=== PATIENT | male | born 1955 | race Two or more races ===

== ENCOUNTER 2022-10-28 12:51 | Emergency (ER) | payer MEDICARE ==
[~2022-10-28] VITALS: Ht 167.6 cm; Wt 54.5 kg
[2022-10-28] MEDS ORDERED: ACETAMINOPHEN 325 MG TABLET PO ONE (14:00)
[2022-10-28] MEDS ORDERED: 0.9% SODIUM CHLORIDE 10 ML SYRINGE IVP PRN (14:15)
[2022-10-28 14:40] LABS: COVID AG,FIA SOURCE NASAL SWAB
[2022-10-28 14:44] LABS: BASOPHILS % (AUTO) 0.1 % (0.0-2.0); EOSINOPHILS % (AUTO) 0 % (1.0-6.0); HEMATOCRIT 36.4 % (41-53); HEMOGLOBIN 11.4 g/dL (13.5-17.5); LYMPHOCYTES # (AUTO) 0.6 K/uL (1.0-4.8); LYMPHOCYTES % (AUTO) 2.4 % (22.0-44.0); MEAN CORPUSCULAR HEMOGLOBIN 28.5 pg (26.0-34.0); MEAN CORPUSCULAR HGB CONC 31.4 G/dL (31.0-37.0); MEAN CORPUSCULAR VOLUME 91 fL (80-100); MONOCYTES % (AUTO) 4.3 % (2.0-9.0); NEUTROPHILS # (AUTO) 22.7 K/uL (1.8-7.7); PLATELET COUNT (AUTO) 271 K/uL (150-450); RED BLOOD CELL COUNT(AUTO) 4.01 MIL/uL (4.50-5.90)
[2022-10-28 14:50] LABS: NEUTROPHILS % (AUTO) 93.2 % (40.0-70.0)
[2022-10-28 15:05] LABS: INFLUENZA TYPE A NEGATIVE FOR TYPE A (NEGATIVE); INFLUENZA TYPE B NEGATIVE FOR TYPE B (NEGATIVE)
[2022-10-28 15:08] LABS: ANION GAP 9 mmol/L (8-16); CARBON DIOXIDE 30 mmol/L (22-29); CHLORIDE 104 mmol/L (98-107); CREATININE 1.33 mg/dL (0.60-1.30); GLOMERULAR FILTR. RATE CALC 54 mL/min (>60); GLUCOSE,RANDOM 216 mg/dL (70-110); POTASSIUM 3.5 mmol/L (3.5-5.1); SODIUM SERUM 143 mmol/L (136-145); UREA NITROGEN, BLOOD 34 mg/dL (7-18)
[2022-10-28 15:13] LABS: ALANINE AMINOTRANSFERASE 26 U/L (12-78); ALBUMIN 1.7 g/dL (3.4-5.0); ALKALINE PHOSPHATASE 122 U/L (46-116); ASPARTATE AMINOTRANSFERASE 28 U/L (15-37); BILIRUBIN,TOTAL 0.5 mg/dL (0.1-1.0); TOTAL PROTEIN, SERUM 7.2 g/dL (6.4-8.2)
[2022-10-28 15:19] LABS: B-TYPE NATRIURETIC PEPTIDE 398 pg/mL (0-100)
[2022-10-28] MEDS ORDERED: SODIUM CHLORIDE 0.9% 100 ML ONE (15:28)
[2022-10-28] MEDS ORDERED: IOHEXOL 350 MG/ML 100 ML VIAL ONE (15:28)
[2022-10-28] MEDS ORDERED: SODIUM CHLORIDE 0.9% 1,650 ML IV ONE (15:30)
[2022-10-28] MEDS ORDERED: VANCOMYCIN 1GM/WATER(PEG/NADA) 200 ML IV ONE (15:45)
[2022-10-28] MEDS ORDERED: PIPERACILLIN/TAZO 3.375 GM/D5W 50 ML IV ONE (15:45)
[2022-10-28 15:58] LABS: C-REACTIVE PROTEIN QUANT 33.17 mg/dL (0.00-0.30)
[2022-10-28 16:36] LABS: AMPHET/METH SCREEN,URINE POSITIVE (NEGATIVE); BARBITURATE SCREEN, URINE NEGATIVE (NEGATIVE); BENZODIAZEPINES SCREEN,URINE NEGATIVE (NEGATIVE); CANNABINOID SCREEN,URINE POSITIVE (NEGATIVE); COCAINE SCREEN,URINE NEGATIVE (NEGATIVE); METHADONE SCREEN, URINE NEGATIVE (NEGATIVE); OPIATE SCREEN,URINE NEGATIVE (NEGATIVE); PHENCYCLIDINE SCREEN,URINE NEGATIVE (NEGATIVE)
[2022-10-28 16:44] LABS: ERYTHROCYTE SEDIMENTATION RATE 115 MM/HR (0-15)
[2022-10-28] MEDS ORDERED: TOBRAMYCIN/DEXAMETHASONE 5 ML OPHTHALMIC SUSPENSION OU ONE (21:00)
[2022-10-28] MEDS ORDERED: BACITRACIN ZINC/POLYMYXIN B 14.2 GM OINTMENT TP ONE (22:30)
[2022-10-28] MEDS ORDERED: IBUPROFEN 600 MG TABLET PO ONE (23:45)
[2022-10-29] MEDS ORDERED: NOREPINEPHRINE 8 MG/D5%-WATER 250 ML IV PRN (02:00)
[2022-10-29] MEDS ORDERED: SODIUM CHLORIDE 0.9% 1,000 ML IV ONE (02:00)
[2022-10-29 02:52] VITALS: BP 90/43
== END 2022-10-29 04:06 | disposition short-term general hospital (02) ==
LOC: EMS 13:00
DX: L03.213 Periorbital cellulitis (principal); A41.9 Sepsis, unspecified organism; F15.10 Other stimulant abuse, uncomplicated; H01.9 Unspecified inflammation of eyelid; Z59.00 Homelessness unspecified; Z20.822 Contact with and (suspected) exposure to COVID-19
CPT/HCPCS: 99291; 70450; 96365; 71045; 87426; 80053; 87205; 83605; 83880; 84484; 85025; 85651; 86140; 87040; 87804; 36415; 87186; 70487; 93005; 96368; 87070; 96367; 96361; 80307 ×2; G0480; J2543; Q9967 ×2; J7030 ×2; J7050